=== PATIENT | female | born 1940 | race Caucasian/White ===

== ENCOUNTER 2020-11-09 17:45 | Inpatient (IN) | payer MEDICARE, OTHER ==
[~2020-11-09] VITALS: Ht 157.5 cm; Wt 54.4 kg
[~2020-11-09 17:45] MED LIST: ALDACTONE 25MG25 MG PO; AMARYL1 MG PO; ATORVASTATIN CA20 MG PO; AZITHROMYCIN250 MG PO; BUSPIRONE HCL5 MG PO; CLOPIDOGREL75 MG PO; K-DUR TAB 20 M20 MEQ PO; LASIX40 MG PO; LISINOPRIL10 MG PO; METOPROLOL TART25 MG PO; NORVASC10 MG PO; OMNICEF 300 MG300 MG PO; ZOLOFT50 MG PO
[2020-11-09 18:56] LABS: HEMOGLOBIN 14.5 gm/dl (12.3-15.3); RED BLOOD COUNT 5.01 M/UL (4.00-5.10); WHITE BLOOD COUNT 8.9 K/UL (4.5-11.0)
[2020-11-09 19:16] LABS: BUN/CREATININE RATIO 27 (0-10)
[2020-11-10 06:22] LABS: BUN/CREATININE RATIO 28 (0-10)
[2020-11-10 18:27] LABS: BUN/CREATININE RATIO 26 (0-10)
--- NOTE | 2020-11-11 00:38 | NUR ---
AT APPROX 22:40 THE PATIENT BECAME MORE AGITATED AND STARTED SWINGING AT THE SITTER. PATIENT ALSO SWUNG AT ME AND OTHER STAFF. CONTACTED MD TO LET HIM KNOW THE SITUATION AND THAT WE NEED TO STAY AWAY FROM MEDICATIONS THAT CAUSE A PROLONGED QT WAVE. MD WAS AWARE AND ORDERED ANOTHER ONE TIME DOSE OF DIAZEPAM 5MG.
[2020-11-11 03:37] LABS: HEMOGLOBIN 14.1 gm/dl (12.3-15.3); RED BLOOD COUNT 4.93 M/UL (4.00-5.10); WHITE BLOOD COUNT 9.1 K/UL (4.5-11.0)
[2020-11-11 03:52] LABS: BUN/CREATININE RATIO 23 (0-10)
[2020-11-12] MEDS ORDERED: VITAMIN D 40400 UNIT PO (17:02)
[2020-11-12] MEDS ORDERED: VITAMIN B-12100 MCG SL (17:02)
[2020-11-12] MEDS ORDERED: METFORMIN ER G500 MG PO (17:02)
[2020-11-12] MEDS ORDERED: KLOR-CON M2020 MEQ PO (17:12)
--- NOTE | 2020-11-12 17:15 | NUR ---
RN CONTACTED RADHA FROM [facility] ABOUT SCHEDULING A ZOOM MEETING FOR PSYCH EVALUATION. SHE STATED THAT THE PATIENT HAD TO BE "MEDICALLY CLEARED" TO QUALIFY FOR THE EVALUATION. RN WROTE DOWN CALL BACK NUMBER AND CALLED DR. COREY. VERBALIZED MEDICAL CLEARANCE VIA TELEPHONE ORDER. RN ATTEMPTED TO CALL [facility] BACK WITH NO SUCCESS. CALL BACK NUMBER AND NAME LEFT. RN TO NOTIFY ONCOMING NURSE.
--- NOTE | 2020-11-12 17:20 | NUR ---
RN RECEIVED CALL FROM ER THAT PATIENT'S SON WAS REQUESTING TO VISIT PATIENT. RN ASKED PATIENT IF SHE WAS COMFORTABLE WITH HER SON VISITING HER. PATIENT STATED SHE WAS AND THAT HE COULD COME UP IF HE WANTED TO. RN REINFORCED MULTIPLE TIMES THAT IF AT ANY TIME SHE WAS UNCOMFORTABLE WITH HIM VISITING OR FELT UNCOMFORTABLE IN ANY WAY, SECURITY COULD BE CALLED AT ANY TIME AND HE WOULD BE ASKED TO LEAVE. PATIENT VERBALIZED UNDERSTANDING AND INSISTED THAT SHE WAS COMFORTABLE WITH HIM VISITING WHILE THE SITTER WAS PRESENT. RN ALSO ASKED PATIENT IF SHE WISHED FOR RN TO SHARE MEDICAL INFORMATION WITH HER SON. PATIENT STATED THAT HER SON WAS ALREADY AWARE OF HER WEAKNESS AND OTHER COMORBIDITIES AND THAT SHE WAS COMFORTABLE WITH HIM BEING AWARE OF HER CURRENT STATE, BUT NOT OF THE EVENTS BEFORE HOSPITALIZATION. BED LOCKED AND LOW. CALL LIGHT WITHIN REACH. SITTER AT BEDSIDE.
--- NOTE | 2020-11-13 07:11 | NUR ---
CALLED AND SPOKE TO DANDRE AT THIS TIME INFORMED HIM THAT SHE IS MEDICALLY CLEAR , HE STATES THEY WILL CALL AND LET US KNOW WHEN ITS TIME TO INTERVIEW HER NOTED
--- NOTE | 2020-11-13 09:40 | NUR ---
PATIENT'S VIRTUAL MEETING WITH ANA MARCUS INITIATED IN ROOM 4101. SITTER AT BEDSIDE. PATIENT VERBALIZED UNDERSTANDING OF ASSESSMENT AND GAVE VERBAL CONSENT TO CONTINUE PER MD ORDER. BED LOCKED AND LOW. CALL LIGHT WITHIN REACH. NO S/SX OF PAIN, DISCOMFORT, OR DISTRESS.
--- NOTE | 2020-11-13 10:30 | NUR ---
RN RECEIVED CALL FROM [facility] [employer] ANGELINE WHO STATED THAT AFTER COMPLETION OF EVALUATION, THEY HAVE RECOMMENDED OUTPATIENT SERVICES. ANGELINE VERBALIZED THAT SHE WOULD FAX DOCUMENTATION TO [facility]. RN PROVIDED FAX NUMBER AND NOTIFIED CASE MANAGEMENT. PATIENT RESTING IN BED. BED LOCKED AND LOW, CALL LIGHT WITHIN REACH.
[2020-11-13 11:34] LABS: HEMOGLOBIN 13.2 gm/dl (12.3-15.3); RED BLOOD COUNT 4.62 M/UL (4.00-5.10)
[2020-11-13 11:57] LABS: WHITE BLOOD COUNT 6.5 K/UL (4.5-11.0)
--- NOTE | 2020-11-13 18:45 | NUR ---
DR. COREY CONTACTED RN VIA TELEPHONE TO INFORM HER THAT SHE HAD BEEN IN CONTACT WITH [facility] AND THAT SHE WAS GOING TO HOLD PATIENT PLACEMENT TO AN INPATIENT FACILITY PENDING REFERRAL FROM [facility].
[2020-11-16 15:21] LABS: BUN/CREATININE RATIO 32 (0-10)
--- NOTE | 2020-11-16 23:50 | NUR ---
RECIEVED PHONE CALL FROM [facility] (SONIA). UPDATED HER ON PATIENT STATUS. INFORMED SONIA THAT THE PT WAS CURRENTLY SLEEPING. SONIA STATED WE COULD TRY [facility] AGAIN IN THE MORNING. INFORMED SONIA THAT IF PT WOKE UP THEN I WOULD GIVE HER A PHONE CALL BACK.
--- NOTE | 2020-11-17 09:15 | NUR ---
LATE ENTRY 11/16/20-- [facility] CALLED AND STATES PT DOESN'T MEET [facility] FOR INPATIENT SERVICES AND RECOMMENDED ADULT PROTECTION SERVICES BE INVOLVED SINCE THERE WAS ISSUES SURROUNDING THE PT STATING SHE WAS UNABLE TO CARE FOR HER SON AT HOME WHO HAS HX OF STROKE. PT STATED THE SON WAS DRIVING HER CRAZY AT HOME TRYING TO TAKE CARE OF HIM.
[2020-11-25 06:23] LABS: HEMOGLOBIN 13.7 gm/dl (12.3-15.3); RED BLOOD COUNT 4.82 M/UL (4.00-5.10); WHITE BLOOD COUNT 6.4 K/UL (4.5-11.0)
[2020-11-25 06:54] LABS: BUN/CREATININE RATIO 38 (0-10)
--- NOTE | 2020-11-26 02:18 | NUR ---
PATIENT HAS OLD SKIN TEAR LEFT TOP FOREARM THAT HAS NO S/S INFECTION; COVERED WITH TEGADERM.
[2020-11-26 06:38] LABS: HEMOGLOBIN 13.4 gm/dl (12.3-15.3); RED BLOOD COUNT 4.84 M/UL (4.00-5.10); WHITE BLOOD COUNT 6.1 K/UL (4.5-11.0)
[2020-11-26 06:58] LABS: BUN/CREATININE RATIO 34 (0-10)
--- NOTE | 2020-11-26 16:28 | NUR ---
11/26/20 1105 ANA CALLED BACK, THEY HAVE HER ON THE LIST AND WILL GET TO HER SOON THEY CAN
[2020-11-27 05:31] LABS: HEMOGLOBIN 13.6 gm/dl (12.3-15.3); RED BLOOD COUNT 4.76 M/UL (4.00-5.10); WHITE BLOOD COUNT 6.8 K/UL (4.5-11.0)
[2020-11-27 05:48] LABS: BUN/CREATININE RATIO 31 (0-10)
[2020-11-28 05:40] LABS: HEMOGLOBIN 13.4 gm/dl (12.3-15.3); RED BLOOD COUNT 4.83 M/UL (4.00-5.10); WHITE BLOOD COUNT 5.5 K/UL (4.5-11.0)
[2020-11-28 06:02] LABS: BUN/CREATININE RATIO 27 (0-10)
--- NOTE | 2020-11-28 08:35 | NUR ---
DUE TO ISSUES WITH [employer] I AM UNABLE TO CHART REGARDING PATIENT'S CARDIOVASCULAR ASSESSMENT. PACEMAKER/DEFIB PRESENT TO LEFT CHEST WALL.
[2020-11-29 02:51] LABS: HEMOGLOBIN 13.1 gm/dl (12.3-15.3); RED BLOOD COUNT 4.64 M/UL (4.00-5.10); WHITE BLOOD COUNT 6.1 K/UL (4.5-11.0)
[2020-11-29 03:00] LABS: BUN/CREATININE RATIO 30 (0-10)
[2020-12-02 04:05] LABS: HEMOGLOBIN 12.9 gm/dl (12.3-15.3); RED BLOOD COUNT 4.64 M/UL (4.00-5.10); WHITE BLOOD COUNT 5.5 K/UL (4.5-11.0)
[2020-12-02 04:16] LABS: BUN/CREATININE RATIO 30 (0-10)
== END 2020-12-04 17:28 | DRG 917 ==
LOC: ER1 17:45 → PROG CARE 20:28 → CDU 20:28 → PROG CARE 11-10 15:33 → MED SURG 4 11-11 16:37
PROVIDERS: Emergency Medicine; Internal Medicine; ADMIT Internal Medicine
DX: T40.2X2A Poisoning by other opioids, intentional self-harm, initial encounter (principal); G92 Toxic encephalopathy; E43 Unspecified severe protein-calorie malnutrition; I50.22 Chronic systolic (congestive) heart failure; E87.2 Acidosis; I42.9 Cardiomyopathy, unspecified; R09.02 Hypoxemia; R53.81 Other malaise; Z20.822 Contact with and (suspected) exposure to COVID-19; T46.1X2A Poisoning by calcium-channel blockers, intentional self-harm, initial encounter; E87.6 Hypokalemia; E78.5 Hyperlipidemia, unspecified; I25.10 Atherosclerotic heart disease of native coronary artery without angina pectoris; E11.9 Type 2 diabetes mellitus without complications; F03.90 Unspecified dementia, unspecified severity, without behavioral disturbance, psychotic disturbance, mood disturbance, and anxiety; E11.40 Type 2 diabetes mellitus with diabetic neuropathy, unspecified; G89.29 Other chronic pain; I11.0 Hypertensive heart disease with heart failure; J44.9 Chronic obstructive pulmonary disease, unspecified; Z90.89 Acquired absence of other organs; Y92.89 Other specified places as the place of occurrence of the external cause; Z95.0 Presence of cardiac pacemaker; Z79.891 Long term (current) use of opiate analgesic; Z90.710 Acquired absence of both cervix and uterus; Z79.4 Long term (current) use of insulin; Z68.21 Body mass index [BMI] 21.0-21.9, adult
CPT/HCPCS: 36415; 36600; 51702; 70450; 71045; 80048; 80053; 80307; 81001; 82140; 82550; 82553; 82607; 82746; 82803; 82962; 83036; 83735; 83874; 84100; 84132; 84439; 84443; 84484; 85025; 85610; 85730; 87086; 93005; 96372; 96374; 96375; 96376; 97116; 97116-GP-CQ; 97161; 97166; 97530; 97535; 99285; G0378; G0480; J0610; J0696; J1650; J3360; J3480; J7030; U0002